=== PATIENT | male | born 1980 | race Caucasian/White ===

== ENCOUNTER 2017-05-25 20:58 | Emergency (ER) | payer BC ==
[~2017-05-25] VITALS: Ht 175.3 cm; Wt 108.9 kg
[2017-05-25 21:28] VITALS: BP_SYST 135
[2017-05-25] MEDS ORDERED: LIDOCAINE 1% 10 MG/ML, 20 ML MDV IJ ONE (23:45)
[2017-05-25] MEDS ORDERED: BACITRACIN 1 GM OINT TP ONE (23:45)
[2017-05-26 00:30] VITALS: BP_SYST 129
== END 2017-05-26 00:30 | disposition home or self-care (01) ==
LOC: SED 20:58
DX: S61.211A Laceration without foreign body of left index finger without damage to nail, initial encounter (principal); F17.210 Nicotine dependence, cigarettes, uncomplicated; W26.0XXA Contact with knife, initial encounter; Y93.89 Activity, other specified; Y92.89 Other specified places as the place of occurrence of the external cause; Y99.8 Other external cause status
CPT/HCPCS: 12001; 99283; J2001